=== PATIENT | female | born 1960 | race African-American/Black ===

== ENCOUNTER 2018-04-09 01:39 | Observation (INO) | payer OTHER ==
[2018-04-09] VITALS (10 sets, daily range): BP systolic 157–235; BP diastolic 60–112; PULSE 70–97; RESP 16–20; TEMP 97.5–98.1; O2SAT 97–100
[~2018-04-09] VITALS: Ht 165.1 cm; Wt 127.5 kg
[~2018-04-09 01:39] MED LIST: Z.0.NO CURRENT MEDS
[2018-04-09 03:23] LABS: ALBUMIN 3.8 GM/DL (3.4-5.0); AST (GOT) 14 U/L (15-37); BICARBONATE 23.2 MEQ/L (21.0-32.0); BLOOD UREA NITROGEN 11 MG/DL (7-18); CALCIUM 8.5 MG/DL (8.5-10.1); CHLORIDE 109 MEQ/L (98-107); CREATININE 0.82 MG/DL (0.50-1.00); GLOMERULAR FILTRATION RATE 88 ML/MIN (>89); GLUCOSE,RANDOM 97 MG/DL (74-106); MAGNESIUM 1.8 MG/DL (1.5-2.5); SODIUM (NA) 142 MEQ/L (136-145)
--- NOTE | 2018-04-09 03:24 | RADRPT ---
EXAM DATE: 04/09/2018 3:08 AM EDT AGE/SEX: 57 years / Female INDICATIONS: Dizziness. CLINICAL DATA: This is the patient's initial encounter. Patient reports that signs and symptoms have been present for 1 day and indicates a pain score of 0/10. MEDICAL/SURGICAL HISTORY: None. None. RADIATION DOSE: 56.35 CTDI (mGy) COMPARISON: No prior exams available for comparison. TECHNIQUE: CT of the head without contrast. Using automated exposure control and adjustment of the mA and/or kV according to patient size, radiation dose was kept as low as reasonably achievable to ob tain optimal diagnostic quality images. DICOM format image data is available electronically for revi ew and comparison. FINDINGS: Cerebrum: The ventricles are normal for age. No evidence of midline shift, mass lesion, hemorrhage or acute infarction. No extraaxial fluid collections are seen. Posterior Fossa: The cerebellum and brainstem are intact. The 4th ventricle is midline. The cerebe llopontine angle is unremarkable. Extracranial: The visualized portion of the orbits is intact. Skull: The calvaria is intact. No evidence of skull fracture. CONCLUSION: 1. Negative CT Head non contrast. Electronically signed by: Steven Brooks MD 04/09/2018 3:23 AM EDT
[2018-04-09 03:25] LABS: BILIRUBIN, URINE NEG (NEG); BLOOD, URINE MOD (NEG); GLUCOSE,URINE NEG (NEG); KETONE, URINE NEG (NEG); MUCUS URINE FEW /lpf (OCC); NITRITE,URINE NEG (NEG); SQUAMOUS EPITHELIAL CELL URINE 1 /hpf (0-5); URINE COLOR YELLOW (YELLW/STRAW); URINE LEUKOCYTE ESTERASE NEG (NEG)
--- NOTE | 2018-04-09 03:29 | RADRPT ---
EXAM DATE: 04/09/2018 3:19 AM EDT AGE/SEX: 57 years / Female INDICATIONS: Cough. Congestion. CLINICAL DATA: This is the patient's initial encounter. Patient reports that signs and symptoms have been present for 3 days and indicates a pain score of 4/10. MEDICAL/SURGICAL HISTORY: None. None. COMPARISON: No prior exams available for comparison. FINDINGS: A single AP view of the chest demonstrates the lungs to be symmetrically aerated without evidence of mass, infiltrate or effusion. The cardiomediastinal contours are unremarkable. Osseous structures a re intact. CONCLUSION: Negative examination. Electronically signed by: Steven Brooks MD 04/09/2018 3:27 AM EDT
[2018-04-09 03:35] LABS: ALKALINE PHOSPHATASE 100 U/L (45-117); ALT (GPT) 17 U/L (10-53); TOTAL BILIRUBIN ADULT 0.7 MG/DL (0.2-1.0); TOTAL PROTEIN 8.3 GM/DL (6.4-8.2); TROPONIN I LESS THAN 0.02 NG/ML (0.02-0.05)
--- NOTE | 2018-04-09 04:04 | PD ---
HPI Chief Complaint: Dizziness Time Seen by Provider: 02:07 Travel History International Travel<30 days: No Contact w/Intl Traveler<30days: No Traveled to known affect area: No History of Present Illness HPI The patient is a 57 year old female who presents to the [facility] emergency department with a history of reportedly feeling woozy since 1 PM yesterday when she woke up. She reports that she has a sensation of being off balance. She is able to walk without difficulty. She reports that her symptoms seem to be getting worse when she came to work this evening. 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 She denies any prior history of hypertension. She reports however that she has not had a primary care physician examine her in the last 5 years. The patient's only medical history is iron deficiency anemia. She reports that she is noncompliant with taking her iron on a regular basis. She denies having any headaches. She denies having any neck pain, chest pain, shortness of breath, one-sided weakness, slurred speech, facial droop, difficulty with word finding ability, or vision changes. On review of systems otherwise, the patient denies having any known recent fevers, cough or congestion, abdominal pain, vomiting, diarrhea, urinary symptoms, or neurologic symptoms. The patient incidentally on review of systems also reports having a 100 pound weight gain over the last year. LMP: 3 months ago. She reports that her menstrual cycles are now very irregular. [facility] Past Medical History Narrative Medical The patient's past medical history is significant for iron deficiency anemia thought to be related to her menstrual cycles, daily alcohol intake. 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 Other Surgery: No Social History Alcohol Use: Yes (3-4 vodka drinks daily) Tobacco Use: No Substance Use: No Allergies-Medications (Allergen,Severity, Reaction): Coded Allergies: No Known Allergies (Verified Allergy, Unknown, 11/28/06) Reported Meds & Prescriptions Reported Meds & Active Scripts Active Reported No Current Meds (Miscellaneous Medication) [facility] Review of Systems Except as stated in HPI: all other systems reviewed are Neg General / Constitutional: No: Fever Eyes: No: Visual changes HENT: No: Headaches, Vertigo, Lightheadedness, Neck Stiffness, Neck Pain Cardiovascular: No: Chest Pain or Discomfort Respiratory: No: Shortness of Breath Gastrointestinal: No: Nausea, Vomiting, Diarrhea, Abdominal Pain Genitourinary: No: Dysuria Musculoskeletal: No: Pain Skin: No Rash Neurologic: Positive: Dizziness, No: Weakness, Focal Abnormalities, Headache, Change in Mentation, Slurred Speech, Sensory Disturbance Psychiatric: No: Depression Endocrine: No: Polydipsia Hematologic/Lymphatic: No: Easy Bruising Physical Exam Narrative General: The patient is a well-developed well-nourished female in no acute distress. Head and Neck exam: Head is normocephalic atraumatic. Eyes: EOMI, pupils are equal round and reactive to light. Nose: Midline septum with pink mucous membranes Mouth: Dentition unremarkable. Moist mucus membranes. Posterior oropharynx is not erythematous. No tonsillar hypertrophy. Uvula midline. Airway patent. Neck: No palpable lymphadenopathy. No nuchal rigidity. No thyromegaly. Cardiovascular: Regular rate and rhythm without murmurs, gallops, or rubs. No pulse deficit to the extremities on simultaneous auscultation and palpation of her radial artery. Lungs: Clear to auscultation bilaterally. No wheezes, rhonchi, or rales. Abdomen: Soft, without tenderness to palpation in all 4 quadrants of the abdomen. No guarding, rebound, or rigidity. Normal bowel sounds are audible. No tenderness on palpation of McBurney's point. Negative Carrizales sign. Extremities: No clubbing, cyanosis, or edema. 2+ pulses in all 4 extremities. No calf tenderness on palpation. Back: No spinous process tenderness to palpation. No costovertebral angle tenderness to palpation. Neurologic Exam: Cranial nerves 2-12 were intact on exam. No nystagmus noted. Strength is 5/5 in all 4 extremities. No sensory deficits noted. No dysdiadochokinesis. Good finger to nose and Heel to hernandez bilaterally. Skin Exam: No rash noted. Intact skin that is warm and dry. Data Data Last Documented VS Vital Signs Date Time Temp Pulse Resp B/P (MAP) Pulse Ox O2 Delivery O2 Flow Rate FiO2 04/09/18 04:35 79 189/60 (103) 98 Room Air 04/09/18 01:58 20 04/09/18 01:41 98.1 Orders Orders Electrocardiogram (04/09/18 02:35) Complete Blood Count With Diff (04/09/18 02:35) Comprehensive Metabolic Panel (04/09/18 02:35) Creatine Kinase (Cpk) (04/09/18 02:35) Ckmb (Isoenzyme) Profile (04/09/18 02:35) Troponin I (04/09/18 02:35) B-Type Natriuretic Peptide (04/09/18 02:35) Prothrombin Time / Inr (Pt) (04/09/18 02:35) Act Partial Throm Time (Ptt) (04/09/18 02:35) Lipase (04/09/18 02:35) Urinalysis - C+S If Indicated (04/09/18 02:35) Magnesium (Mg) (04/09/18 02:35) Thyroid Stimulating Hormone (04/09/18 02:35) Chest, Single Ap (04/09/18 02:35) Ct Brain W/O Iv Contrast(Rout) (04/09/18 02:35) Iv Access Insert/Monitor (04/09/18 02:35) Ecg Monitoring (04/09/18 02:35) Oximetry (04/09/18 02:35) CKMB (04/09/18 02:57) CKMB% (04/09/18 02:57) Labetalol Inj (Trandate Inj) (04/09/18 04:15) Admit Order (Ed Use Only) (04/09/18 04:41) Place In Observation (04/09/18 ) Vital Signs (Adult) Q4H (04/09/18 04:43) Activity Oob With Assistance (04/09/18 04:43) Notify Dr: Other (04/09/18 04:43) Diet Heart Healthy (04/09/18 Breakfast) Sodium Chloride 0.9% Flush (Ns Flush) (04/09/18 04:45) Sodium Chloride 0.9% Flush (Ns Flush) (04/09/18 09:00) Acetaminophen (Tylenol) (04/09/18 04:45) Basic Metabolic Panel (Bmp) (04/10/18 06:00) Complete Blood Count With Diff (04/10/18 06:00) Naloxone Inj (Narcan Inj) (04/09/18 04:45) Docusate Sodium-Senna (Jamila-Colace) (04/09/18 09:00) Magnesium Hydroxide Liq (Milk Of Magnesi (04/09/18 04:45) Sennosides (Senokot) (04/09/18 04:45) Bisacodyl Supp (Dulcolax Supp) (04/09/18 04:45) Lactulose Liq (Lactulose Liq) (04/09/18 04:45) Clonidine (Catapres) (04/09/18 04:45) Ondansetron Odt (Zofran Odt) (04/09/18 05:00) Labs Laboratory Tests Test 04/09/18 02:57 04/09/18 03:10 04/09/18 03:25 04/09/18 03:30 Blood Urea Nitrogen 11 MG/DL Creatinine 0.82 MG/DL Random Glucose 97 MG/DL Total Protein 8.3 GM/DL Albumin 3.8 GM/DL Calcium Level 8.5 MG/DL Magnesium Level 1.8 MG/DL Alkaline Phosphatase 100 U/L Aspartate Amino Transf (AST/SGOT) 14 U/L Alanine Aminotransferase (ALT/SGPT) 17 U/L Total Bilirubin 0.7 MG/DL Sodium Level 142 MEQ/L Potassium Level 3.9 MEQ/L Chloride Level 109 MEQ/L Carbon Dioxide Level 23.2 MEQ/L Anion Gap 10 MEQ/L Estimat Glomerular Filtration Rate 88 ML/MIN Total Creatine Kinase 183 U/L Creatine Kinase MB 2.7 NG/ML Troponin I LESS THAN 0.02 NG/ML B-Type Natriuretic Peptide 38 PG/ML Lipase 90 U/L Thyroid Stimulating Hormone 3rd Gen 2.210 uIU/ML Urine Color YELLOW Urine Turbidity CLEAR Urine pH 7.0 Urine Specific [place] 1.015 Urine Protein NEG mg/dL Urine Glucose (UA) NEG mg/dL Urine Ketones NEG mg/dL Urine Occult Blood MOD Urine Nitrite NEG Urine Bilirubin NEG Urine Urobilinogen 2.0 mg/dL Urine Leukocyte Esterase NEG Urine RBC 1 /hpf Urine WBC 1 /hpf Urine Squamous Epithelial Cells 1 /hpf Urine Mucus FEW /lpf Microscopic Urinalysis Comment CULT NOT INDICATED Prothrombin Time 10.5 SEC Prothromb Time International Ratio 1.0 RATIO Activated Partial Thromboplast Time 25.2 SEC White Blood Count 8.8 TH/MM3 Red Blood Count 4.75 MIL/MM3 Hemoglobin 10.1 GM/DL Hematocrit 32.5 % Mean Corpuscular Volume 68.4 FL Mean Corpuscular Hemoglobin 21.2 PG Mean Corpuscular Hemoglobin Concent 31.0 % Red Cell Distribution Width 21.0 % Platelet Count 189 TH/MM3 Mean Platelet Volume 10.7 FL Neutrophils (%) (Auto) 71.9 % Lymphocytes (%) (Auto) 17.0 % Monocytes (%) (Auto) 9.6 % Eosinophils (%) (Auto) 1.0 % Basophils (%) (Auto) 0.5 % Neutrophils # (Auto) 6.4 TH/MM3 Lymphocytes # (Auto) 1.5 TH/MM3 Monocytes # (Auto) 0.9 TH/MM3 Eosinophils # (Auto) 0.1 TH/MM3 Basophils # (Auto) 0.0 TH/MM3 CBC Comment AUTO DIFF Differential Comment AUTO DIFF CONFIRMED Platelet Estimate NORMAL Platelet Morphology Comment ENLARGED MDM Medical Decision Making Medical Screen Exam Complete: Yes Emergency Medical Condition: Yes Medical Record Reviewed: Yes Differential Diagnosis Uncontrolled hypertension, versus symptomatic anemia, versus intracranial hemorrhage Narrative Course During the course of the patient's emergency department visit, the patient's history, examination, and differential diagnosis were reviewed with the patient. The patient was placed on a instrument assembly supervisor with oximetry and frequent blood pressure monitoring. The patient had IV access obtained and blood work sent for analysis. The patient had an EKG done on arrival that shows a sinus rhythm heart rate of 93, QRS duration is 93 ms, QTC is [address] segment elevation or depression. The patient was initially provided labetalol 10 mg IV. The patient's laboratory studies were reviewed and remarkable for a white count of 8.8, hemoglobin 10.1, platelets 189 with 71.9 neutrophils, CMP is remarkable for chloride of 109, GFR of 88, AST 14, cardiac enzymes within normal limits, BNP 38, lipase within normal limits, TSH within normal limits. PT 10.5, PTT 25.2, urinalysis shows moderate occult blood to urobilinogen, 1 RBC, 1 WBC. Radiology studies were reviewed and remarkable for Last Impressions Head CT 04/09/18234 Signed Impressions: CONCLUSION: 1. Negative CT Head non contrast. Chest X-Ray 04/09/18234 Signed Impressions: CONCLUSION: Negative examination. On reexamination, the patient's blood pressure continues to be elevated at 190 systolic. 10 mg of IV hydralazine will be administered. The patient's results were discussed with the patient, including the plan of care. I explained that further testing and/ or monitoring is indicated based on the patient's history, examination, and/ or laboratory findings. Therefore, I recommended admission for additional evaluation. The patient expressed understanding and was agreeable with this plan. The patient was admitted to the hospital in stable condition and sent to a bed under the care of the [facility]. Physician Communication Physician Communication The patient's case including history, pertinent physical examination findings, and laboratory studies were discussed with Dr. Willingham. It was agreed that the patient would be admitted to the [facility] service. Diagnosis Primary Impression: Hypertensive urgency Admitting Information Admitting Physician Requests: Observation Joana Sotomayor MD Apr 09, 2018 04:04
[2018-04-09 04:06] LABS: PROTHROMBIN TIME - PATIENT 10.5 SEC (9.8-11.6)
[2018-04-09] MEDS ORDERED: LABETALOL HCL 100 MG/20 ML VIAL IV PUSH ONE (04:15)
[2018-04-09 04:36] LABS: AUTOMATED NEUTROPHIL # 6.4 TH/MM3 (1.8-7.7); BASOPHIL % 0.5 % (0.0-2.0); EOSINOPHIL # 0.1 TH/MM3 (0-0.4); HEMATOCRIT 32.5 % (35.0-46.0); HEMOGLOBIN 10.1 GM/DL (11.6-15.3); LYMPHOCYTE # 1.5 TH/MM3 (1.0-4.8); MEAN CELL VOLUME 68.4 FL (80.0-100.0); MEAN CORPUSCULAR HEMOGLOBIN 21.2 PG (27.0-34.0); MEAN PLATELET VOLUME 10.7 FL (7.0-11.0); MONO % 9.6 % (0.0-8.0); MONOCYTE # 0.9 TH/MM3 (0-0.9); NEUT % 71.9 % (16.0-70.0); PLATELET COUNT 189 TH/MM3 (150-450); RED BLOOD COUNT 4.75 MIL/MM3 (4.00-5.30); WHITE BLOOD COUNT 8.8 TH/MM3 (4.0-11.0)
[2018-04-09] MEDS ORDERED: NALOXONE HCL 0.4 MG/ML AMP IV PUSH PRN (04:45)
[2018-04-09] MEDS ORDERED: BISACODYL 10 MG SUPP RECTAL PRN (04:45)
[2018-04-09] MEDS ORDERED: cloNIDine HCL 0.1 MG TAB PO PRN (04:45)
[2018-04-09] MEDS ORDERED: MAGNESIUM HYDROXIDE SUSP 30 ML CUP PO PRN (04:45)
[2018-04-09] MEDS ORDERED: SODIUM CHLORIDE 0.9% FLUSH 10 ML FLUSH IV FLUSH PRN (04:45)
[2018-04-09] MEDS ORDERED: ACETAMINOPHEN 325 MG TAB PO PRN (04:45)
[2018-04-09] MEDS ORDERED: LACTULOSE SYRUP 20 GM/30 ML CUP PO PRN (04:45)
[2018-04-09] MEDS ORDERED: SENNOSIDES 8.6 MG TAB PO PRN (04:45)
[2018-04-09] MEDS ORDERED: hydrALAZINE HCL 20 MG/ML VIAL IV PUSH ONE (05:00)
[2018-04-09] MEDS ORDERED: ONDANSETRON ODT 4 MG TAB PO PRN (05:00)
[2018-04-09] MEDS ORDERED: DOCUSATE SODIUM 50 MG/SENNA 8.6 MG TAB PO SCH (09:00)
[2018-04-09] MEDS ORDERED: SODIUM CHLORIDE 0.9% FLUSH 10 ML FLUSH IV FLUSH SCH (09:00)
[2018-04-09] MEDS ORDERED: amLODIPine BESYLATE 5 MG TAB PO ONE (11:45)
--- NOTE | 2018-04-09 11:55 | HHI.HP ---
[facility] No Primary Care Physician Admission Diagnosis UNCONTROLLED HYPERTENSION WITH DIZZINESS Diagnoses: Chief Complaint: Vision changes Travel History International Travel<30 Days: No Contact w/Intl Traveler <30 Da: No Traveled to Known Affected Are: No History of Present Illness The patient is a 57-year-old female with a past medical history of iron deficiency anemia who presented to the hospital with vision changes. The patient says that she has been very stressed out recently. She describes feeling woozy. She says she put her mom in a chcf a few months ago and she has been very stressed out about that. She believes her vision changes may be secondary to that. She described her vision changes as blurry vision as well as a sensation of the room going back and forth. She did not have an accompanying headache. She said that around 5 AM things got better. She currently endorses a frontal headache rated at a 2 out of 10 in severity. She says she does not have history of high blood pressure. She does eat a lot of salt with her meals. She drinks a lot of vodka on a regular basis. She says that she has not been taking her iron pills as directed. She does not follow up with any doctors. She has never had a does not get regular Pap smears. 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 Review of Systems Except as stated in HPI: all other systems reviewed are Neg Past Family Social History Past Medical History Iron deficiency anemia Past Surgical History The patient denies any surgery Allergies: Coded Allergies: No Known Allergies (Verified Allergy, Unknown, 11/28/06) Family History Hypertension Diabetes Social History The patient does not smoke. She says she drinks 3 large vodka drinks daily. She denies illicit substance use. Physical Exam Vital Signs Vital Signs Date Time Temp Pulse Resp B/P (MAP) Pulse Ox O2 Delivery O2 Flow Rate FiO2 04/09/18 08:01 98.1 70 17 173/79 (110) 99 04/09/18 06:45 158/78 (104) 04/09/18 06:35 98.1 76 16 209/93 (131) 98 04/09/18 05:31 77 18 175/80 (111) 97 Room Air 04/09/18 05:00 79 185/94 (124) 97 04/09/18 04:35 79 189/60 (103) 98 Room Air 04/09/18 02:42 Room Air 04/09/18 01:58 90 20 206/89 (128) 97 Room Air 04/09/18 01:41 98.1 97 18 227/110 (149) 98 235/112 (153) Physical Exam GENERAL: This is a well-nourished, well-developed patient, in no apparent distress. SKIN: No rashes, ecchymoses or lesions. Cool and dry. HEAD: Atraumatic. Normocephalic. No temporal or scalp tenderness. EYES: Pupils equal round and reactive. Extraocular motions intact. No scleral icterus. No injection or drainage. ENT: Nose without bleeding, purulent drainage or septal hematoma. Throat without erythema, tonsillar hypertrophy or exudate. Uvula midline. Airway patent. NECK: Trachea midline. No JVD or lymphadenopathy. Supple, nontender, no meningeal signs. CARDIOVASCULAR: Regular rate and rhythm without murmurs, gallops, or rubs. RESPIRATORY: Clear to auscultation. Breath sounds equal bilaterally. No wheezes , rales, or rhonchi. GASTROINTESTINAL: Abdomen soft, non-tender, nondistended. No hepato-splenomegaly , or palpable masses. No guarding. MUSCULOSKELETAL: Extremities without clubbing, cyanosis, or edema. No joint tenderness, effusion, or edema noted. NEUROLOGICAL: Awake and alert. Cranial nerves II through XII intact. Motor and sensory grossly within normal limits. Five out of 5 muscle strength in all muscle groups. Normal speech. Laboratory Laboratory Tests Test 04/09/18 02:57 04/09/18 03:10 04/09/18 03:25 04/09/18 03:30 Blood Urea Nitrogen 11 Creatinine 0.82 Random Glucose 97 Total Protein 8.3 Albumin 3.8 Calcium Level 8.5 Magnesium Level 1.8 Alkaline Phosphatase 100 Aspartate Amino Transf (AST/SGOT) 14 Alanine Aminotransferase (ALT/SGPT) 17 Total Bilirubin 0.7 Sodium Level 142 Potassium Level 3.9 Chloride Level 109 Carbon Dioxide Level 23.2 Anion Gap 10 Estimat Glomerular Filtration Rate 88 Total Creatine Kinase 183 Creatine Kinase MB 2.7 Troponin I LESS THAN 0.02 B-Type Natriuretic Peptide 38 Lipase 90 Thyroid Stimulating Hormone 3rd Gen 2.210 Urine Color YELLOW Urine Turbidity CLEAR Urine pH 7.0 Urine Specific [place] 1.015 Urine Protein NEG Urine Glucose (UA) NEG Urine Ketones NEG Urine Occult Blood MOD Urine Nitrite NEG Urine Bilirubin NEG Urine Urobilinogen 2.0 Urine Leukocyte Esterase NEG Urine RBC 1 Urine WBC 1 Urine Squamous Epithelial Cells 1 Urine Mucus FEW Microscopic Urinalysis Comment CULT NOT INDICATED Prothrombin Time 10.5 Prothromb Time International Ratio 1.0 Activated Partial Thromboplast Time 25.2 White Blood Count 8.8 Red Blood Count 4.75 Hemoglobin 10.1 Hematocrit 32.5 Mean Corpuscular Volume 68.4 Mean Corpuscular Hemoglobin 21.2 Mean Corpuscular Hemoglobin Concent 31.0 Red Cell Distribution Width 21.0 Platelet Count 189 Mean Platelet Volume 10.7 Neutrophils (%) (Auto) 71.9 Lymphocytes (%) (Auto) 17.0 Monocytes (%) (Auto) 9.6 Eosinophils (%) (Auto) 1.0 Basophils (%) (Auto) 0.5 Neutrophils # (Auto) 6.4 Lymphocytes # (Auto) 1.5 Monocytes # (Auto) 0.9 Eosinophils # (Auto) 0.1 Basophils # (Auto) 0.0 CBC Comment AUTO DIFF Differential Comment AUTO DIFF CONFIRMED Platelet Estimate NORMAL Platelet Morphology Comment ENLARGED Result Diagram: 04/09/180 04/09/18256 Imaging Last Impressions Head CT 04/09/18234 Signed Impressions: CONCLUSION: 1. Negative CT Head non contrast. Chest X-Ray 04/09/18234 Signed Impressions: CONCLUSION: Negative examination. Caprini VTE Risk Assessment Caprini VTE Risk Assessment: Mod/High Risk (score >= 2) Caprini Risk Assessment Model Point Value = 1 Point Value = 2 Point Value = 3 Point Value = 5 Age 41-60 Minor surgery BMI > 25 kg/m2 Swollen legs Varicose veins or History of unexplained or recurrent spontaneous Oral contraceptives or hormone replacement Sepsis (< 1 month) Serious lung disease, including pneumonia (< 1 month) Abnormal pulmonary function Acute myocardial infarction Congestive heart failure (< 1 month) History of inflammatory bowel disease Medical patient at bed rest Age 61-74 Arthroscopic surgery Major open surgery (> 45 min) Laparoscopic surgery (> 45 min) Malignancy Confined to bed (> 72 hours) Immobilizing plaster cast Central venous access Age >= 75 History of VTE Family history of VTE Factor V Leiden Prothrombin [id number] Lupus anticoagulant Anticardiolipin antibodies Elevated serum homocysteine Heparin-induced thrombocytopenia Other congenital or acquired thrombophilia Stroke (< 1 month) Elective arthroplasty Hip, pelvis, or leg fracture Acute spinal cord injury (< 1 month) Prophylaxis Regimen Total Risk Factor Score Risk Level Prophylaxis Regimen 0-1 Low Early ambulation 2 Moderate Order ONE of the following: *Sequential Compression Device (SCD) *Heparin 5000 units SQ BID 3-4 Higher Order ONE of the following medications: *Heparin 5000 units SQ TID *Enoxaparin/Lovenox 40 mg SQ daily (WT < 150 kg, CrCl > 30 mL/min) *Enoxaparin/Lovenox 30 mg SQ daily (WT < 150 kg, CrCl > 10-29 mL/min) *Enoxaparin/Lovenox 30 mg SQ BID (WT < 150 kg, CrCl > 30 mL/min) AND/OR *Sequential Compression Device (SCD) 5 or more Highest Order ONE of the following medications: *Heparin 5000 units SQ TID (Preferred with Epidurals) *Enoxaparin/Lovenox 40 mg SQ daily (WT < 150 kg, CrCl > 30 mL/min) *Enoxaparin/Lovenox 30 mg SQ daily (WT < 150 kg, CrCl > 10-29 mL/min) *Enoxaparin/Lovenox 30 mg SQ BID (WT < 150 kg, CrCl > 30 mL/min) AND *Sequential Compression Device (SCD) Assessment and Plan Assessment and Plan Hypertensive urgency Blood pressure has been elevated over 200 systolic. She denies a prior history of HTN. She does endorse eating a lot of salt and drinking a lot of alcohol. The pt does not want to stay in the hospital overnight. - started amlodipine 5 mg daily and lisinopril 10 mg daily. Blood pressure is improved. - clonidine as needed. - went over diet modifications and alcohol cessation instruction. - recommended that the pt buy a blood pressure monitor for the home. - follow up with PCP. Blurry vision S/t above. CT head unremarkable. Symptoms resolved with improvement in blood pressure. - treatment as above. Alcohol abuse The pt endorses drinking three large vodka drinks daily. - cessation instruction. - CIWA protocol. Iron deficiency anemia Chronic. She does not take her iron pills. - recommend to resume iron pills. - recommended to pursue colonoscopy and OBGYN eval as an outpt. Noncompliance The pt does not take medications as directed and does not follow up with doctors as directed. She said she will change this. - outpt follow-up. PPx: SCDs Discussed Condition With Pt, nurse Ricci Harrison DO Apr 09, 2018 11:55
[2018-04-09] MEDS ORDERED: LISINOPRIL 10 MG TAB PO SCH (12:00)
[2018-04-09] MEDS ORDERED: amLODIPine BESYLATE 5 MG TAB PO SCH (12:00)
[2018-04-09] MEDS ORDERED: LORazepam 2 MG TAB PO PRN (12:15)
[2018-04-09] MEDS ORDERED: LORazepam 1 MG TAB PO PRN (12:15)
[2018-04-09] MEDS ORDERED: LORazepam 2 MG/ML VIAL IV PUSH PRN ×2 (12:15)
[2018-04-09] MEDS ORDERED: FLUMAZENIL 0.5 MG/5 ML VIAL IV PUSH PRN (12:15)
--- NOTE | 2018-04-09 13:54 | EKG ---
Date Performed: 04/09/2018 Time Performed: 01:54:36 PTAGE: 57 years EKG: Sinus rhythm POSSIBLE RIGHT ATRIAL ENLARGEMENT BORDERLINE ECG PREVIOUS TRACING : 11/28/2006 09.05 DOCTOR: Steven Mazariegos Interpretating Date/Time 04/09/2018 13:51:11
[2018-04-09] MEDS ORDERED: AMLO5 PO (14:03)
[2018-04-09] MEDS ORDERED: LISI10TA3 PO (14:03)
--- NOTE | 2018-04-09 14:04 | HHI.DCPOC ---
Discharge Care Plan Diagnosis: (1) Hypertensive urgency Goals to Promote Your Health * To prevent worsening of your condition and complications * To maintain your health at the optimal level Directions to Meet Your Goals Take your medications as prescribed Follow your dietary instruction Follow activity as directed Keep your appointments as scheduled Take your immunizations and boosters as scheduled If your symptoms worsen call your PCP, if no PCP go to Urgent Care Center or Emergency Room Smoking is Dangerous to Your Health. Avoid second hand smoke Call the 24-hour hour crisis hotline for domestic abuse at Ricci Harrison DO Apr 09, 2018 14:04
== END 2018-04-09 16:21 | disposition home or self-care (01) ==
LOC: NEPE 01:39 → NEDA 04:46 → N04B 06:29
PROVIDERS: ADMIT Hospitalist; ATTEND Hospitalist
DX: I16.0 Hypertensive urgency (principal); R42 Dizziness and giddiness; D50.9 Iron deficiency anemia, unspecified; H53.8 Other visual disturbances; F10.10 Alcohol abuse, uncomplicated; R51 Headache; Z82.49 Family history of ischemic heart disease and other diseases of the circulatory system; Z83.3 Family history of diabetes mellitus; Z91.19 Patient's noncompliance with other medical treatment and regimen
CPT/HCPCS: 70450; 71045; 80053; 81001; 82550; 82552; 83690; 83735; 83880; 84443; 84484; 85025; 85610; 85730; 93005; 96374; 99285; G0378